=== PATIENT | female | born 1995 | race American Indian/Alaskan Native ===

== ENCOUNTER 2017-05-22 12:03 | Emergency (ER) | payer OTHER ==
[2017-05-22 12:30] VITALS: BP 135/85; PULSE 91; RESP 18; TEMP 98.7; O2SAT 99
--- NOTE | 2017-05-22 13:03 | C.PDOC ---
History Of Present Illness 22 year old female presents to the emergency department complaining of rash for the past 7 days. Patient reports trying Benadryl, Claritin, and Aquaphor with no alleviation. Denies any fever, similar rash in the past, recent travel, or sick contacts. PMD: No Primary Care Physician Time Seen by Provider: 05/22/17 12:38 Chief Complaint (Nursing): Abnormal Skin Integrity History Per: Patient History/Exam Limitations: no limitations Onset/Duration Of Symptoms: Days (x1 week) Current Symptoms Are (Timing): Still Present Past Medical History Reviewed: Historical Data, Nursing Documentation, Vital Signs Vital Signs: Last Vital Signs Temp 98.7 F 05/22/17 12:28 Pulse 91 H 05/22/17 12:28 Resp 18 05/22/17 12:28 BP 135/85 05/22/17 12:28 Pulse Ox 99 05/22/17 14:55 - Medical History PMH: No Chronic Diseases Surgical History: No Surg Hx Family History: States: Unknown Family Hx - Social History Hx Tobacco Use: Yes (4 years, <10 cigarettes daily) Hx Alcohol Use: No Hx Substance Use: No - Immunization History Hx Tetanus Toxoid Vaccination: No Hx Influenza Vaccination: No Hx Pneumococcal Vaccination: No Review Of Systems Except As Marked, All Systems Reviewed And Found Negative. Constitutional: Negative for: Fever Respiratory: Negative for: Shortness of Breath Skin: Positive for: Rash Physical Exam - Physical Exam Appears: Well, No Acute Distress Skin: Warm, Dry, Rash (Guttate scaly papules of trunk and arms) Head: Atraumatic, Normacephalic Eye(s): bilateral: Normal Inspection, PERRL, EOMI Nose: Normal Neck: Normal Neurological/Psych: Oriented x3, Normal Speech ED Course And Treatment O2 Sat by Pulse Oximetry: 99 (RA) Pulse Ox Interpretation: Normal Disposition Counseled Patient/Family Regarding: Diagnosis, Need For Followup, Rx Given - Disposition Referrals: [facility] [Outside] [facility] [Outside] Deyvi Colmenares MD [Medical Doctor] - Disposition: HOME/ ROUTINE Disposition Time: 13:08 Condition: STABLE Additional Instructions: TAKE KESHA 180 MG IN AM AND BENADRYL 25 MG AT NIGHT NEEDED FOR ITCH. FOLLOW UP WITH [facility] COORDIN[facility] FOR FURTHER EVALUATION. 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 IF SYMPTOMS GET WORSE OR ANY NEW CONCERNING SYMPTOMS DEVELOP RETURN TO ED. Prescriptions: Betamethasone/Propylene Glyc [Betamethasone Dp Aug 0.05% Crm] 50 gm TP BID #1 tub Instructions: Psoriasis (ED) Forms: [facility] (Yakut), General Discharge Instructions - Clinical Impression Clinical Impression: Guttate psoriasis - Scribe Statement The provider has reviewed the documentation as recorded by the Scribe Laurel Sellers All medical record entries made by the Julisaibyulisa were at my direction and personally dictated by me. I have reviewed the chart and agree that the record accurately reflects my personal performance of the history, physical exam, medical decision making, and the department course for this patient. I have also personally directed, reviewed, and agree with the discharge instructions and disposition.
== END 2017-05-22 13:13 | disposition home or self-care (01) ==
LOC: C.ER 12:03
DX: L40.4 Guttate psoriasis (principal)